=== PATIENT | female | born 1985 | race Caucasian/White ===

== ENCOUNTER → 2017-02-14 | Outpatient (CLI) | payer OTHER ==
--- NOTE | 2017-02-14 13:16 | KCIC ---
MR of the right knee Indication: Anterior pain. Effusion. Fell 1.5 months ago. Technique: The standard multiplanar sequences are obtained. Findings: Medial meniscus:Intact. Lateral meniscus: There is minimal blunting of the body of the lateral meniscus on a single coronal slice. On the sagittal images, there is some deformity at the body and anterior horn. Findings are compatible with a tear. The lateral meniscus may be partially discoid. Anterior cruciate ligament: Intact Posterior cruciate ligament: Intact Medial collateral ligament: Intact. Iliotibial band: Intact. Posterolateral structures: Fibular collateral ligament, biceps tendon and popliteus tendon are intact. Extensor mechanism: Intact. Fluid: Small joint effusion. Articular cartilage -patellofemoral joint:Intact -medial compartment:Intact -lateral compartment:Intact Bones: Minimal subchondral marrow edema at the posterior lateral tibial plateau could be a resolving contusion. No acute fracture or aggressive bone destruction. Soft tissue: Unremarkable Impression: 1. Findings are compatible with a lateral meniscal tear. Lateral meniscus may be partially discoid. 2. Minimal subchondral marrow edema at the posterior lateral tibial plateau, may represent a resolving marrow contusion. Electronically signed by: Derian Espinoza MD (02/14/2017 1:13 PM) [facility]
== END | disposition home or self-care (01) ==
LOC: KCIC MRI 11:32
PROVIDERS: ATTEND Physician Assistant
DX: S83.281A Other tear of lateral meniscus, current injury, right knee, initial encounter (principal); X58.XXXA Exposure to other specified factors, initial encounter; Y93.89 Activity, other specified; Y92.89 Other specified places as the place of occurrence of the external cause; Y99.8 Other external cause status
CPT/HCPCS: 73721

== ENCOUNTER 2017-06-21 16:27 | Emergency (ER) | payer OTHER ==
[2017-06-21 17:04] LABS: ADD MAN DIFF? NO
[2017-06-21 17:05] LABS: BASO % 1 % (0-3); EOS # 0.3 x10^3/uL (0.0-0.7); EOS % 3 % (0-3); HEMATOCRIT 35.7 % (36.0-47.0); HEMOGLOBIN 12.1 g/dL (12.0-15.5); LYMPH # 2.8 x10^3/uL (1.0-4.8); LYMPH % 29 % (24-48); MEAN CORPUSCULAR HEMOGLOBIN 31 pg (25-35); MEAN CORPUSCULAR HGB CONC 34 g/dL (31-37); MEAN CORPUSCULAR VOLUME 91 fL (79-100); MONO # 0.6 x10^3/uL (0.0-1.1); MONO % 6 % (0-9); NEUT # 5.9 x10^3uL (1.8-7.7); NEUT % 61 % (31-73); PLATELET COUNT 261 x10^3/uL (140-400); RED BLOOD COUNT 3.91 x10^6/uL (3.50-5.40); RED CELL DISTRIBUTION WIDTH 12.8 % (11.5-14.5); WHITE BLOOD COUNT 9.6 x10^3/uL (4.0-11.0)
[2017-06-21 17:17] LABS: D-DIMER < 0.27 ug/mlFEU (0.00-0.50)
[2017-06-21 17:19] LABS: ANION GAP 9 (6-14); BLOOD UREA NITROGEN 16 mg/dL (7-20); CALCIUM 9.8 mg/dL (8.5-10.1); CARBON DIOXIDE 27 mmol/L (21-32); CHLORIDE 107 mmol/L (98-107); CREATININE 1.1 mg/dL (0.6-1.0); GFR 58.3; GLUCOSE 101 mg/dL (70-99); POTASSIUM 3.5 mmol/L (3.5-5.1); SODIUM 143 mmol/L (136-145)
[2017-06-21 17:26] LABS: ALBUMIN 4.2 g/dL (3.4-5.0); ALK PHOS 31 U/L (46-116); ALT (SGPT) 16 U/L (14-59); AST (SGOT) 12 U/L (15-37); DIRECT BILIRUBIN 0.1 mg/dL (0.0-0.2); TOTAL BILIRUBIN 0.3 mg/dL (0.2-1.0); TOTAL PROTEIN 7.8 g/dL (6.4-8.2)
[2017-06-21 17:33] LABS: TROPONINI < 0.017 ng/mL (0.000-0.055)
[2017-06-21 17:34] LABS: CKMB INDEX 1.4 % (0-4); CKMB MASS 1.5 ng/mL (0.0-3.6); CREATINE KINASE 111 U/L (26-192)
[2017-06-21 17:34] LABS: NT-PRO BNP 16 pg/mL (0-124)
== END 2017-06-21 18:15 | disposition home or self-care (01) ==
LOC: ER 16:27
DX: R07.89 Other chest pain (principal); F17.210 Nicotine dependence, cigarettes, uncomplicated
CPT/HCPCS: 36415; 71046; 80048; 80076; 82553; 83880; 84484; 85025; 85379; 93005; 99285-25

== ENCOUNTER → 2018-04-02 | Outpatient (CLI) | payer OTHER ==
[2017-06-21 16:38] VITALS: BP 123/62
--- NOTE | 2018-04-03 08:08 | RAD ---
Examination: BREAST LEFT History: FEELS LUMP Comparison/Correlation: 07/05/2015 diagnostic mammogram bilateral and complete left breast ultrasound Findings: Limited ultrasound imaging of the left breast 12:00 region was performed at the site of reported palpable abnormality at 8 cm from the nipple. Breast parenchyma is normal this site. There is no mass or cyst identified. There is no palpable abnormality upon physical examination by myself. Impression: Normal limited left breast ultrasound at the site of reported palpable adenopathy. No palpable adenopathy in the detected by myself. If clinical concern persists, mammography may be performed Electronically signed by: Uche Coley MD (04/03/2018 8:04 AM) [facility]
== END | disposition home or self-care (01) ==
LOC: US 09:46
PROVIDERS: ATTEND Family Medicine
DX: N63.21 Unspecified lump in the left breast, upper outer quadrant (principal)
CPT/HCPCS: 76641

== ENCOUNTER 2018-10-18 14:08 | Emergency (ER) | payer OTHER ==
[~2018-10-18] VITALS: Ht 162.6 cm; Wt 91.7 kg
[2018-10-18 14:31] VITALS: BP 114/61
--- NOTE | 2018-10-18 15:16 | RAD ---
SHOULDER 2+V RIGHT History: Pain.. No evidence of acute fracture no evidence of acute fracture. No aggressive bone destruction. No dislocation. No significant soft tissue abnormality. IMPRESSION: No acute fracture or dislocation. Electronically signed by: Derian Espinoza MD (10/18/2018 3:13 PM) [facility]
[2018-10-18] MEDS ORDERED: DICL50TA4 PO (15:30)
[2018-10-18] MEDS ORDERED: CYCL10TA2 PO (15:30)
[2018-10-18] MEDS ORDERED: METH4TAB2 PO (15:30)
--- NOTE | 2018-10-18 15:31 | PHYS DOC ---
Past Medical History Past Medical History: No Pertinent History Past Surgical History: Tubal ligation Additional Information: 3 TO 4 CIGARETTES A DAY Alcohol Use: None Drug Use: None Adult General Chief Complaint Chief Complaint: SHOULDER INJURY HPI HPI Patient is a 33 year old female who presents with 7 out of 10 throbbing right shoulder pain on and off for the last 2 days, patient states the pain began yesterday after she lifted her stove. She states she had a snap sound from the shoulder. She states she's been able to use the shoulder but it hurts. She st ates most of the pain on range of motion. Review of Systems Review of Systems Constitutional: Denies fever or chills [] Musculoskeletal: Reports right shoulder pain Integument: Denies rash or skin lesions [] Neurologic: Denies headache, focal weakness or sensory changes [] All other systems were reviewed and found to be within normal limits, except as documented in this note. Allergies Allergies Allergies Coded Allergies Type Severity Reaction Last Updated Verified No Known Drug Allergies 06/21/17 No Physical Exam Physical Exam Constitutional: Well developed, well nourished, no acute distress, non-toxic appearance. [] Skin: Warm, dry, no erythema, no rash. [] Back: No tenderness, no CVA tenderness. [] Extremities: Right shoulder with no obvious deformity, full range of motion to the right shoulder. Full range of motion to the right hand and fingers. Adequate radial, medial, ulnar sensation to the right upper extremity. +2 right radial pulse. Cap refill less than 2 seconds the right fingers. Neurologic: Alert and oriented X 3, normal motor function, normal sensory function, no focal deficits noted. [] Psychologic: Affect normal, judgement normal, mood normal. [] Current Patient Data Vital Signs Vital Signs Date Time Temp Pulse Resp B/P (MAP) Pulse Ox O2 Delivery O2 Flow Rate FiO2 10/18/18 14:31 98.6 66 16 114/61 (78) 97 Room Air 98.6 EKG EKG [] Radiology/Procedures Radiology/Procedures []PROCEDURE: SHOULDER 2+V RIGHT SHOULDER 2+V RIGHT History: Pain.. No evidence of acute fracture no evidence of acute fracture. No aggressive bone destruction. No dislocation. No significant soft tissue abnormality. IMPRESSION: No acute fracture or dislocation. Electronically signed by: Derian Espinoza MD (10/18/2018 3:13 PM) [facility] DICTATED and SIGNED BY: DERIAN ESPINOZA MD DATE: 10/18/18 1513 Course & Med Decision Making Course & Med Decision Making Pertinent Labs and Imaging studies reviewed. (See chart for details) This is a 33-year-old female patient presenting to the ED today with right shoulder pain after lifting a stove yesterday. Right shoulder x-rays interpreted by radiologist are negative for any acute findings. Sling provided for the right shoulder. Ice elevation encouraged. Discharged with cyclobenzaprine, Medrol Dosepak, and diclofenac. Provided return precautions. Follow-up with orthopedic doctor in 1-2 weeks. Dragon Disclaimer Dragon Disclaimer This electronic medical record was generated, in whole or in part, using a voice recognition dictation system. Departure Departure Impression: Primary Impression: Right shoulder strain Disposition: 01 HOME, SELF-CARE Condition: STABLE Referrals: SHYAM HAHN (PCP) MARIBETH ALARCON II, MD follow up in 1-2 weeks Patient Instructions: Shoulder Sprain Additional Instructions: You were evaluated in the medicine for shoulder pain, your right shoulder x-rays are negative for any acute findings. We provided you sling. Use it as needed and tolerated. Try to ice and elevate the extremity. Take the prescribed medications as ordered. Follow-up with your own doctor provided doctor in 1-2 weeks if pain continues. Scripts Diclofenac Sodium (DICLOFENAC SODIUM) 50 Mg Tablet.dr 1 TAB PO BID, #20 TAB 0 Refills Prov: DEVEN LOPEZ APRN 10/18/18 Cyclobenzaprine Hcl (CYCLOBENZAPRINE HCL) 10 Mg Tablet 1 TAB PO TID, #30 TAB Prov: DEVEN LOPEZ APRN 10/18/18 Methylprednisolone (MEDROL) 4 Mg Tab.ds.pk 1 PKG PO UD, #1 PKG Prov: DEVEN LOPEZ APRN 10/18/18 Problem Qualifiers Primary Impression: Right shoulder strain Encounter type: initial encounter Qualified Codes: S46.911A - Strain of unspecified muscle, fascia and tendon at shoulder and upper arm level, right arm, initial encounter DEVEN LOPEZ APRN October 18, 2018 15:31
== END 2018-10-18 15:37 | disposition home or self-care (01) ==
LOC: ER 14:08
DX: S46.911A Strain of unspecified muscle, fascia and tendon at shoulder and upper arm level, right arm, initial encounter (principal); F17.210 Nicotine dependence, cigarettes, uncomplicated; X50.0XXA Overexertion from strenuous movement or load, initial encounter; Y93.89 Activity, other specified; Y92.89 Other specified places as the place of occurrence of the external cause; Y99.8 Other external cause status
CPT/HCPCS: 73030; 99284